=== PATIENT | female | born 1990 | race Hispanic/Latino ===

== ENCOUNTER 2018-07-19 15:02 | Emergency (ER) | payer OTHER ==
[~2018-07-19] VITALS: Ht 154.9 cm; Wt 58.0 kg
[2018-07-19 16:39] LABS: URINE BILIRUBIN - DIPSTICK NEGATIVE (NEGATIVE); URINE BLOOD DIPSTICK LARGE (NEGATIVE); URINE COLOR YELLOW; URINE GLUCOSE - DIPSTICK NEGATIVE (NEGATIVE); URINE KETONE NEGATIVE (NEGATIVE); URINE LEUK ESTERASE NEGATIVE (NEGATIVE); URINE NITRITE - DIPSTICK NEGATIVE (Negative); URINE PROTEIN - DIPSTICK NEGATIVE (NEG-TRACE); URINE SPECIFIC GRAVITY >=1.030; URINE UROBILINOGEN - DIPSTICK 0.2 E.U./dL (0.2)
[2018-07-19 16:41] LABS: URINE CLARITY SL CLOUDY
[2018-07-19 16:47] LABS: URINE SQUAMOUS EPITHELIAL CELL FEW EPI/hpf (0-FEW)
[2018-07-19 16:48] LABS: URINE RBC 50-100 RBC/hpf (0-5)
[2018-07-19 17:20] VITALS: BP 124/71
== END 2018-07-19 17:20 | disposition home or self-care (01) ==
LOC: ED 15:02
DX: N94.89 Other specified conditions associated with female genital organs and menstrual cycle (principal)

== ENCOUNTER 2019-03-23 19:48 | Emergency (ER) | payer OTHER ==
[~2019-03-23] VITALS: Ht 154.9 cm; Wt 57.0 kg
[2019-03-23 20:39] LABS: HEMATOCRIT 38.8 % (37.0-47.0); HEMOGLOBIN 13.3 g/dl (12.0-16.0); IMMATURE GRANULOCYTES 0.4 % (0.0-5.0); MEAN CELL VOLUME 84.5 fL CALC (80.0-100.0); MEAN CORPUSCULAR HGB CONC 34.3 g/L CALC (32.0-36.0); NEUT# 7.27 thou/uL (2.00-7.15); RED BLOOD COUNT 4.59 mill/uL (4.20-5.60); RED CELL DISTRI WIDTH 12.1 % (11.5-15.5)
[2019-03-23 20:41] LABS: URINE BLOOD DIPSTICK NEGATIVE (NEGATIVE); URINE GLUCOSE - DIPSTICK NEGATIVE (NEGATIVE); URINE KETONE TRACE mg/dL (NEGATIVE); URINE LEUK ESTERASE NEGATIVE (NEGATIVE); URINE NITRITE - DIPSTICK NEGATIVE (Negative); URINE PROTEIN - DIPSTICK 30 mg/dL (NEG-TRACE); URINE SPECIFIC GRAVITY >=1.030
[2019-03-23 20:43] LABS: URINE BILIRUBIN - DIPSTICK NEGATIVE (NEGATIVE); URINE COLOR DK. YELLOW; URINE RBC 0-2 RBC/hpf (0-5); URINE SQUAMOUS EPITHELIAL CELL FEW EPI/hpf (0-FEW); URINE WBC 0-2 WBC/hpf (0-5)
[2019-03-23 20:56] LABS: ALBUMIN 4.6 g/dL (3.2-5.0); ALKALINE PHOSPHATASE 72 u/l (38-126); AMYLASE 136 u/l (30-110); ANION GAP 17 (6-22 (CALC)); BILIRUBIN, TOTAL 0.5 mg/dL (0.0-1.4); BUN 10 mg/dL (7-17); BUN/CREATININE RATIO 19 (12-20 (CALC)); CARBON DIOXIDE 25 mmol/l (22-30); CHLORIDE 100 mmol/l (95-108); CREATININE 0.5 mg/dL (0.5-1.0); GFR > 60 ML/MIN (>=60 (CALC)); GFR FOR AFR.AMER. > 60 ML/MIN (>=60 (CALC)); LIPASE 45 u/l (23-300); POTASSIUM 3.7 mmol/l (3.5-5.1); SGOT/AST 23 u/l (14-36); SODIUM 139 mmol/l (137-146); TOTAL PROTEIN 8.2 g/dL (6.3-8.2)
[2019-03-23 21:44] LABS: BETA-HCG, QUANT(RESULT NUMBER) 101380 mIU/mL
[2019-03-23] MEDS ORDERED: ZOFRAN ODT4 MG PO ×2 (21:44→21:59)
[2019-03-23] MEDS ORDERED: PHENERGAN25 MG/TAB PO (21:45)
[2019-03-23 23:24] VITALS: BP 105/61
== END 2019-03-23 22:00 | disposition home or self-care (01) ==
LOC: ED 19:48
PROVIDERS: Emergency Medicine
DX: O21.0 Mild hyperemesis gravidarum (principal); Z3A.01 Less than 8 weeks gestation of pregnancy